=== PATIENT | female | born 1970 | race Caucasian/White ===

== ENCOUNTER → 2016-09-03 | Outpatient (CLI) | payer BC ==
[~2016-09-03] MED LIST: ALBU17AE23 IH; APAP; BENZ100C18; BUDE6HFA; HCT25T; METO50TA7; POTA10CA43 PO; PRD20T; [UNRECOGNIZED DRUG - OTHER]
--- NOTE | 2016-09-04 17:37 | Diagnostic Imaging Report ---
Bilateral screening mammogram The current study was also evaluated with a Computer Aided Detection (CAD) system. Indication: Screening. No current complaints stated on the questionnaire. COMPARISON: 04/02/13 Findings: The breasts are composed of scattered fibroglandular densities. There are scattered benign appearing calcifications. Allowing for technique and positional differences, no suspicious change is seen. IMPRESSION: No significant change. ACR BI-RADS Category 2: Benign findings. Result letter will be mailed to the patient. Note: At least 10% of breast cancer is not imaged by mammography. Dictated by: Dictated on workstation # [id number]
== END ==
LOC: RAD 07:07
PROVIDERS: ATTEND Nurse Practitioner
DX: Z12.31 Encounter for screening mammogram for malignant neoplasm of breast (principal)
CPT/HCPCS: 77067

== ENCOUNTER → 2018-04-20 | Outpatient (CLI) | payer BC ==
--- NOTE | 2018-04-21 08:27 | Diagnostic Imaging Report ---
EXAMINATION: Ultrasound of soft tissue of head and neck. INDICATION: Throat fullness. COMPARISON: There are no prior ultrasound studies available for comparison. FINDINGS: The right lobe of the thyroid is enlarged and has a heterogeneous appearance. The right lobe measures 6.0 x 2.6 x 2.1 cm (normal gland size 4-5 x 2 x 2 cm or less). In the inferior pole of the right lobe, there is a fairly well-circumscribed 1.9 x 1.8 x 1.8 cm area of diminished echogenicity. This has the appearance of a cyst. In reviewing the CT chest exam of 04/09/2011, there was a similar-appearing but smaller (1 cm) cyst in the same region. These findings may be one and the same. The left lobe of the thyroid is also heterogeneous but there is no discrete lesion within the left lobe. The left lobe is also smaller measuring 4.4 x 1.3 x 1.6 cm. No other abnormality is identified. IMPRESSION: 1. The right lobe of the thyroid is enlarged and has a heterogeneous appearance. There also appears to be a cyst in the inferior pole of the right lobe. The left lobe is generally unremarkable. 2. If further imaging evaluation is desired, then a nuclear medicine thyroid scan would be recommended. Dictated by: Dictated on workstation # [id number]
== END ==
LOC: RAD 12:44
PROVIDERS: ATTEND Nurse Practitioner
DX: E04.9 Nontoxic goiter, unspecified (principal)
CPT/HCPCS: 76536

== ENCOUNTER → 2018-06-18 | Outpatient (CLI) | payer BC ==
--- NOTE | 2018-06-18 08:52 | Diagnostic Imaging Report ---
Indication: Routine screening. Comparison is made with prior mammogram from 09/03/2016 and 04/05/2013. 2-D and 3-D bilateral screening mammography was performed with CAD. Scattered fibroglandular densities are identified bilaterally. Benign nodular densities in the outer right breast are stable. No new mass or malignant-appearing microcalcifications are seen. Axillae are unremarkable. Impression: BI-RADS category 2 No mammographic features suspicious for malignancy are identified. Dictated by: Dictated on workstation # [id number]
== END ==
LOC: RAD 08:01
PROVIDERS: ATTEND Nurse Practitioner
DX: Z12.31 Encounter for screening mammogram for malignant neoplasm of breast (principal)
CPT/HCPCS: 77067

== ENCOUNTER 2018-07-19 05:47 | Outpatient (CLI) | payer BC ==
[~2018-07-19] VITALS: Ht 167.6 cm; Wt 122.5 kg
[2018-07-19] MEDS ORDERED: LOSA50TA63 PO (14:21)
[2018-07-19] MEDS ORDERED: TRIA1CAP4 PO (14:21)
[2018-07-19] MEDS ORDERED: MONT10TA21 PO (14:21)
[2018-07-19] MEDS ORDERED: POTA10CA43 PO (14:21)
[2018-07-19] MEDS ORDERED: LEVO50TA6 PO (14:21)
== END 2018-07-19 15:03 | disposition home or self-care (01) ==
LOC: PREOP 05:47
PROVIDERS: ATTEND Obstetrics & Gynecology
DX: Z01.818 Encounter for other preprocedural examination (principal)

== ENCOUNTER 2018-07-23 11:16 | Day surgery (SDC) | payer BC ==
[~2018-07-23] VITALS: Ht 167.6 cm; Wt 128.1 kg
[2018-07-23] VITALS (8 sets, daily range): BP systolic 134–160; BP diastolic 88–102
[~2018-07-23 11:16] MED LIST changes: +LEVO50TA6 PO; +LOSA50TA63 PO; +MONT10TA21 PO; +TRIA1CAP4 PO
[2018-07-23] MEDS ORDERED: LACTATED RINGERS 1,000 ML IV PRN (11:25)
[2018-07-23] MEDS ORDERED: ceFAZolin INJECTION 1,000 MG in WATER (STERILE) FOR INJECTION 10 ML IV ONE (11:30)
[2018-07-23] MEDS ORDERED: ONDANSETRON 4 MG/2 ML (SDV) Z0FRAN ONE (11:59)
[2018-07-23] MEDS ORDERED: DEXAMETHASONE 10 MG/ML (DECADRON) 1 ML VIAL ONE (11:59)
[2018-07-23] MEDS ORDERED: LIDOCAINE PF 2% 5 ML (XYLOCAINE) VIAL ONE (11:59)
[2018-07-23] MEDS ORDERED: proPOfol 200 MG/20 ML (DIPRIVAN) VIAL IV ONE ×2 (11:59→13:34)
[2018-07-23] MEDS ORDERED: NEOSTIGMINE 1 MG/ML 5 ML SYRINGE ONE (11:59)
[2018-07-23] MEDS ORDERED: ROCURONIUM 10 MG/ML 5 ML SYRINGE IV ONE (11:59)
[2018-07-23] MEDS ORDERED: KETOROLAC 30 MG/ML VIAL ONE (11:59)
[2018-07-23] MEDS ORDERED: SEVOFLURANE (ULTANE) 15 ML INHAL SOLN ONE ×4 (11:59→13:35)
[2018-07-23] MEDS ORDERED: MIDAZOLAM 2 MG/2 ML (VERSED) VIAL ONE (11:59)
[2018-07-23] MEDS ORDERED: fentaNYL INJECTION 100 MCG/2 ML AMP ONE (11:59)
[2018-07-23] MEDS ORDERED: GLYCOPYRROLATE 0.2 MG/ML (ROBINUL) 2 ML VIAL ONE (11:59)
[2018-07-23] MEDS ORDERED: VASOPRESSIN INJECTION 20 UNIT/ML VIAL ONE (12:19)
[2018-07-23] MEDS ORDERED: NS (IVPB) 100 ML ONE (12:19)
--- NOTE | 2018-07-23 12:50 | Progress Note-Pre Operative ---
Pre-Operative Progress Note H&P Reviewed The H&P was reviewed, patient examined and no changes noted. Attempted to sign prior to surgery but was unable as computer was down. Date Seen by Provider: July 23, 2018 Time Seen by Provider: 12:45 Date H&P Reviewed: July 23, 2018 Time H&P Reviewed: 12:30 Pre-Operative Diagnosis: STRESS INCONTINENCE SALLY BOWDEN DO July 23, 2018 12:50
[2018-07-23] MEDS ORDERED: BUPIVACAINE 0.25% 30 ML (SENSORCAINE) VIAL ONE (13:07)
[2018-07-23] MEDS ORDERED: BUP/EPI 0.25% 1:200,000 (MARCAINE) 10 ML VIAL IJ ONE (13:07)
[2018-07-23] MEDS ORDERED: morphine INJ 10 MG/ML 1ML (SYR OR VIAL) ONE (13:51)
[2018-07-23] MEDS ORDERED: morphine INJ 10 MG/ML 1ML (SYR OR VIAL) IVP ONE (14:00)
[2018-07-23] MEDS ORDERED: MEPERIDINE (DEMEROL) INJ 50 MG/ML IVP ONE (14:00)
[2018-07-23] MEDS ORDERED: KETOROLAC 30 MG/ML VIAL IVP ONE (14:00)
[2018-07-23] MEDS ORDERED: ONDANSETRON 4 MG/2 ML (SDV) Z0FRAN IVP PRN (14:00)
[2018-07-23] MEDS ORDERED: ACETAMINOPHEN 500 MG TAB (TYLENOL) PO PRN (14:00)
--- NOTE | 2018-07-23 14:07 | Operative Report ---
Operative Report Date of Procedure/Surgery July 23, 2018 Surgeon (s) SALLY BOWDEN DO Operations Intern (s): NA Post-Operative Diagnosis Stress incontinence Procedure Performed Solyx Pubovaginal sling Description of Procedure Anesthesia Type: MAC Estimated blood loss (mL): minimal/none Specimen(s) collected/removed none Description of the Procedure With informed consent the patient was taken to the operating room where MAC anesthesia was found to be adequate. She was prepped and draped in the usual sterile fashion in the dorsolithotomy position. A Neville catheter was placed in the bladder. I then injected the sub and periurethral space with 0.25% Marcaine. I then made a 1 cm incision, 1.5 cm from the urethral meatus in the midline. I then injected vasopressin in the periurethral space and dissected laterally with the Metzenbaum scissors. The Sling was then inserted in the standard fashion bilaterally through the obturator space. I then did a cystoscopy. There was no intravesicular pathology and both ureters were seen and effluxing bilaterally. I then left 350 ml of urine in the bladder and there was no leakage with Cred. At this point the cystoscope was removed and the sling was noted to be laying flat under the urethra in the mid urethral space. I then closed the incision with 4-0 Monocryl. Fluid was left in the bladder. She was awakened and taken to recovery. She will be discharged home once she is stable from recovery and she has voided. Sponge, lap, needle and instrument counts were correct times two. Findings of the Procedure > 50 degree rotation, spontaneous leakage with cough Allergies and Home Medications Allergies Coded Allergies: Penicillins (Verified Allergy, Severe, RASH/SWELLING, 07/19/18) Home Medications Levothyroxine Sodium 50 Mcg Tablet, 50 MCG PO DAILY, (Reported) Losartan Potassium 50 Mg Tablet, 50 MG PO DAILY, (Reported) Montelukast Sodium 10 Mg Tablet, 10 MG PO DAILY, (Reported) Potassium Chloride 10 Meq Capsule.er, 10 MEQ PO DAILY, (Reported) Triamterene/Hydrochlorothiazid 1 Each Capsule, 1 EACH PO DAILY, (Reported) Patient Home Medication List Home Medication List Reviewed: Yes SALLY BOWDEN DO July 23, 2018 14:07
[2018-07-23] MEDS ORDERED: IBUP-1773 PO (14:13)
[2018-07-23] MEDS ORDERED: OXC5T PO (14:13)
[2018-07-23] MEDS ORDERED: ACET-77 PO (14:13)
--- NOTE | 2018-07-23 14:16 | Discharge Inst-Women's Service ---
Discharge Inst-Women's Serv Depart Medication/Instructions New, Converted or Re-Newed RX: Other (transmitted and on chart) Instructions no lifting over 25 lbs. No driving until Thursday nothing in the vagina until cleared. Final Diagnosis stress incontinence Consults/Follow Up Additional Follow Up: Yes (7-10 days with Bowden) Activity Activity: Activity as Tolerated NO SMOKING: NO SMOKING Nothing Inside Vagina: No Douching, No [place], No Tampons Diet Discharge Diet: No Restrictions Symptoms to Report to DrRosemary: Swelling Increased, Bleeding Excessive, Pain Increased, Fever Over 101 Degrees F, Urination Difficulty, Vaginal Bleeding Increase, Vaginal Discharge Foul SALLY BOWDEN DO July 23, 2018 14:16
== END 2018-07-23 15:22 | disposition home or self-care (01) ==
LOC: SDC 11:16 → EDSTATUS 13:00 → SDC 15:22
PROVIDERS: ATTEND Obstetrics & Gynecology
DX: N39.3 Stress incontinence (female) (male) (principal); I10 Essential (primary) hypertension; E66.01 Morbid (severe) obesity due to excess calories; Z68.42 Body mass index [BMI] 45.0-49.9, adult; Z79.899 Other long term (current) drug therapy
CPT/HCPCS: 84703; 87081; 94664